=== PATIENT | male | born 1960 | race Hispanic/Latino ===

== ENCOUNTER → 2017-11-10 | Day surgery (SDC) | payer OTHER ==
[~2017-11-10] MED LIST: ASPIRIN81 M3 PO; FLOMAX0.4 MG PO; LIDOCAINE HCL 2% LOCAL INJ 5 ML SDV VIAL INJ ONE; MIDAZOLAM HCL 2 MG/2 ML VIAL ONE; PROPOFOL IV EMULSION 10 MG/ML 50 ML VIAL ONE; SIMETHICONE 40 MG/0.6 ML BTL ONE; Z.0.LISINOPRIL2.5 MG PO; Z.0.METOPROLOL SUCC2 PO; Z.0.PLAVIX75 MG PO; Z.0.PRAVACHOL40 MG PO; [UNRECOGNIZED DRUG - CODE] SL; prostate med
== END | disposition home or self-care (01) ==
LOC: OR 07:05
PROVIDERS: ATTEND Internal Medicine Gastroenterology
DX: Z12.11 Encounter for screening for malignant neoplasm of colon (principal); D12.4 Benign neoplasm of descending colon; D12.8 Benign neoplasm of rectum; K57.30 Diverticulosis of large intestine without perforation or abscess without bleeding; K64.8 Other hemorrhoids; J06.9 Acute upper respiratory infection, unspecified; I25.2 Old myocardial infarction; B18.2 Chronic viral hepatitis C; R06.83 Snoring; I25.10 Atherosclerotic heart disease of native coronary artery without angina pectoris; Z01.810 Encounter for preprocedural cardiovascular examination; Z79.82 Long term (current) use of aspirin; Z68.33 Body mass index [BMI] 33.0-33.9, adult; Z95.5 Presence of coronary angioplasty implant and graft
CPT/HCPCS: 45385; 93005; J2001; J2250; 45378